=== PATIENT | female | born 2000 | race African-American/Black ===

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

== ENCOUNTER 2022-06-23 20:36 | Emergency (ER) | payer OTHER ==
[2022-06-23] MEDS ORDERED: DIAZEPAM 5 MG TABLET ONE (21:12)
[2022-06-23] MEDS ORDERED: IBUPROFEN 400 MG TAB ONE (21:12)
[2022-06-23] MEDS ORDERED: IBUPROFEN 200 MG TAB PO ONE (21:12)
--- NOTE | 2022-06-23 22:38 | RAD REPORT ---
EXAM DESCRIPTION: RAD - Knee Left 3 View - 06/23/2022 10:24 pm CLINICAL HISTORY: Left knee pain FINDINGS: No fracture or dislocation is seen.
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
[2022-06-23 23:51] VITALS: TEMP 98.5
[2022-06-23 23:52] VITALS: BP 107/70; O2SAT 98
== END 2022-06-23 23:07 | disposition home or self-care (01) ==
LOC: ER 20:36
DX: M25.562 Pain in left knee (principal); M62.838 Other muscle spasm; V43.51XA Car driver injured in collision with sport utility vehicle in traffic accident, initial encounter; Z88.3 Allergy status to other anti-infective agents
CPT/HCPCS: 99284